=== PATIENT | male | born 1955 | race Two or more races ===

== ENCOUNTER 2024-07-02 14:31 | Outpatient (RCR) | payer MEDICARE, SELFPAY ==
--- NOTE | 2024-07-19 21:12 | CTCFLWUP_ITS ---
Patient: SANDER HERNÁNDEZ : 1955 Page 6 of 7 FOLLOW UP NOTE DATE OF SERVICE: 07/02/2024 NAME: SANDER HERNÁNDEZ ACCOUNT: [id number] : 1955 AGE: 69 INTERVAL HISTORY: ONCOLOGY HISTORY: DIAGNOSIS: DATE OF DIAGNOSIS: STAGE/TNM: TREATMENT HISTORY: Care?Plan Start?Date Cycle Day Intent HISTORY OF PRESENT ILLNESS: Sander Hernández is a 69-year-old SPA speaking male with history of Crohn's disease res ulting in significant diarrhea, hypertension, hyperlipidemia is referred to hematology clinic for deonte vated gammaglobulin levels along with elevated M spike. Mr. Hernández had a prostatectomy in 2013. He does not know why the prostatectomy was done. 03/12/2023: Mr. Hernández had serum protein electrophoresis which showed a total globulin level of 4.7, gammaglobulin level of 2.4 (0.4?1.8), M spike of 1.8 g/dL. Hemoglobin 11.1, MCV 94, ferritin 2 4, iron saturation 9% 05/14/2023: Serum protein electrophoresis and immunofixation electrophoresis 06/19/2023: Bone marrow biopsy and aspiration? 09/19/2023: PET/CT scan 12/17/2023: SPEP, GERRI, FLC hemoglobin 13.8, MCV 94, WBC 5.0, ANC 2.1, creatinine 1.02, calcium 9.6, albumin 4.3. 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 Tobacco?Pack?per?Day:?1 Tobacco?Use?Years:?10 Tobacco?Use:?Quit?1985 ETOH Use:?Quit - beers daily for 20yrs Drug?Note:?Denies Social?History?Note:?Lives?with? MEDICATIONS: 1. azelastine - 0.05 % 1 drops Twice a Day 2. chlorthalidone - 25 mg 1 tab Daily 3. donepezil - 10 mg 1 tab Each Day 4. FeroSuL - 325 mg (65 mg iron) 1 tab Daily 5. lisinopril - 20 mg 1 tab Daily 6. memantine - 10 mg 1 tab Twice a Day 7. mesalamine - 1.2 gram 2 Daily 8. Vitamin D2 - 1,250 mcg (50,000 unit) 1 Capsule Weekly 9. Voltaren Arthritis Pain - 1 % As directed Medications Last Reconciled by Esme Garcia MD on 07/02/2024 ALLERGIES: No Known Drug Allergies REVIEW OF SYSTEMS: A complete 14-point review of systems was performed and is negative except as noted in interval histo ry. PHYSICAL EXAMINATION: VITAL SIGNS: Temperature?99.7, B/P?149/70, Oxygen?Saturation?97% Weight?186.6?lbs PAIN: 0 - No pain ECOG Performance Status: 0 - Asymptomatic and fully active GENERAL APPEARANCE: Appears well, in no apparent distress, appropriately interactive. HEENT: Normocephalic, no temporal wasting, normal conjunctiva, no scleral icterus, normal hearing, li ps without lesions, neck normal range of motion. CARDIOVASCULAR: Not assessed. PULMONARY: Normal respiratory effort, no respiratory distress or use of accessory muscles, speaking i n full sentences, no tachypnea. EXTREMITIES: No pedal edema or cyanosis. SKIN: Normal skin appearance. NEUROLOGIC: Alert and oriented x4. PSHYCHIATRIC: Appropriate affect, mood normal, behavior normal, intact thought and speech. LABORATORY DATA: I have personally reviewed and interpreted each of the patient?s relevant lab tests, abnormal finding s are below: Date ASSESSMENT/PLAN: 1. Monoclonal gammopathy of undetermined significance, IgG kappa type M spike 1.9, IgG 2804 2. Crohn's disease currently being followed by Dr. Christian. 3. Hypertension, hyperlipidemia, type 2 diabetes 4. History of prostatectomy in 2013. 1. No specific intervention required today. 2. I will see him back in clinic in 6 months with myeloma panel labs drawn prior to the visit. ORDERS: Cbc,cmp,spep,s immunophresis , kappa lambda chain ratio RETURN TO CLINIC: 6 months BILLING AND COMPLIANCE: I reviewed external records from providers outside my specialty as summarized above. I spent a total of 50 minutes on this patient?s care on the day of their visit excluding time spent related to any bi lled procedures. This time includes time spent with the patient as well as time spent documenting in the medical record, reviewing patients records and tests, obtaining history, placing orders, communi cating with other healthcare professionals, counseling the patient, family or caregiver, and/or care coordination for the diagnoses above. Electronically Signed by: Erik Espinosa MD T: 9:10 PM CC: Renate?Delfino? PCP: Michelle Giron Referring: Michelle Giron This document was completed utilizing speech recognition software. Grammatical errors, random word in sertions, pronoun errors, and incomplete sentences are an occasional consequence of this system due t o software limitations, ambient noise, and hardware issues. Any formal questions or concerns about th e content, text or information contained within the body of this dictation should be directly address ed to the provider for clarification.
== END 2024-07-21 23:59 | disposition home or self-care (01) ==
LOC: SCTC 14:31
PROVIDERS: PCP Physician Assistant; Referring Provider Physician Assistant; Visit Provider Internal Medicine Hematology & Oncology
DX: D47.2 Monoclonal gammopathy (principal); I10 Essential (primary) hypertension; E11.9 Type 2 diabetes mellitus without complications; E78.5 Hyperlipidemia, unspecified; K50.90 Crohn's disease, unspecified, without complications; Z90.79 Acquired absence of other genital organ(s)
CPT/HCPCS: 99214; G0463

== ENCOUNTER → 2024-11-12 | Outpatient (CLI) | payer MEDICARE, SELFPAY ==
--- NOTE | 2024-11-12 11:15 | XR_ITS ---
Examination: Abdomen sonogram, complete Date and time of exam: November 12, 2024 1045 hours INDICATIONS: Elevated liver function tests on laboratory examination performed one month ago. Technique: Multiple real-time grayscale transabdominal sonographic images of the abdomen have been obtained. Findings: Absent gallbladder Normal common bile duct 0.3 cm Pancreas obscured by bowel gas Aorta not enlarged Liver 10.9 cm fatty infiltration lobular contour no focal liver lesions Normal hepatopedal portal venous flow Patent IVC Right kidney 9.7 cm cortex 1.1 cm Left kidney 12.0 cm cortex 2.7 cm Moderate bilateral renal parenchymal scar formation Spleen 11.5 cm IMPRESSION: Absent gallbladder Normal common bile duct Fatty liver Moderate bilateral renal parenchymal scar formation
== END | disposition home or self-care (01) ==
PROVIDERS: PCP Internal Medicine; Referring Provider Internal Medicine; Visit Provider Internal Medicine
DX: K76.0 Fatty (change of) liver, not elsewhere classified (principal); N28.89 Other specified disorders of kidney and ureter
CPT/HCPCS: 76700

== ENCOUNTER 2024-11-17 11:16 | Outpatient (RCR) | payer MEDICARE, SELFPAY ==
[2024-11-17 13:29] LABS: Basophils % (Auto) 1 % (0-2.5); Eosinophils # (Auto) 0.2 Thou/mm3 (0.0-0.5); Eosinophils % (Auto) 4 % (0-10); Hematocrit 33.6 % (41.0-53.0); Hemoglobin 11.6 g/dL (13.5-16.0); Immature Granulocytes % (Auto) 0 % (0-0); Lymphocytes # (Auto) 1.3 Thou/mm3 (1.0-4.8); Lymphocytes % (Auto) 36 % (10-50); Mean Corpuscular HGB Conc 34.5 g/dl (31.0-37.0); Mean Corpuscular Hemoglobin 31.4 pg (25.0-35.0); Mean Corpuscular Volume 91 fL (80-100); Monocytes # (Auto) 0.4 Thou/mm3 (0.0-0.8); Monocytes % (Auto) 10 % (0-12); Neutrophils # (Auto) 1.8 Thou/mm3 (1.8-7.7); Neutrophils % (Auto) 49 % (37-80); Nucleated Red Blood Cell % 0 /100 WBC (0); Platelet Count 178 Thou/mm3 (140-440); RDW Standard Deviation 45.5 fL (35.1-43.9); Red Blood Count 3.69 Miln/mm3 (4.50-5.90); White Blood Count 3.7 Thou/mm3 (3.8-10.6)
[2024-11-17 13:55] LABS: Alanine Aminotransferase 58 U/L (10-49); Albumin, Serum 3.8 gm/dL (3.4-4.8); Alkaline Phosphatase 342 U/L (46-116); Anion Gap 5 (7-16); Aspartate Amino Transferase 66 U/L (0-34); BUN/Creatinine Ratio 21 Ratio (12-20); Blood Urea Nitrogen 23 mg/dL (9-23); Calcium 8.4 mg/dL (8.3-10.6); Calcium (Corrected) 8.6 mg/dL (8.5-10.1); Carbon Dioxide 24.6 mMol/L (20.0-31.0); Chloride 107 mMol/L (98-107); Creatinine (Component) 1.1 mg/dL (0.6-1.3); Globulin 3.9 gm/dL (2.3-3.5); Glucose 95 mg/dL (74-106); Osmolality,Calculated 277 (275-295); Potassium 4.6 mMol/L (3.4-5.1); Sodium 137 mMol/L (136-145); Total Protein 7.7 gm/dL (5.7-8.2); eGFR > 60 See Note
== END 2024-11-18 23:59 | disposition home or self-care (01) ==
LOC: SCTC 11:16
PROVIDERS: Internal Medicine Hematology & Oncology; PCP Physician Assistant; Referring Provider Physician Assistant; Visit Provider Nurse Practitioner Family
DX: D47.2 Monoclonal gammopathy (principal); K76.0 Fatty (change of) liver, not elsewhere classified; K50.90 Crohn's disease, unspecified, without complications; I10 Essential (primary) hypertension; E78.5 Hyperlipidemia, unspecified; E11.9 Type 2 diabetes mellitus without complications; Z90.79 Acquired absence of other genital organ(s)
CPT/HCPCS: 80053; 85025; 96360; 99212; J7030; G0463

== ENCOUNTER 2024-12-09 07:38 | Outpatient (CLI) | payer MEDICARE, MEDICAID, SELFPAY ==
[2024-12-07 09:53] VITALS: BMI 26.4
[2024-12-08 10:37] LABS: Basophils % (Auto) 1 % (0-2.5); Eosinophils # (Auto) 0.3 Thou/mm3 (0.0-0.5); Eosinophils % (Auto) 6 % (0-10); Hematocrit 37.6 % (41.0-53.0); Hemoglobin 13.1 g/dL (13.5-16.0); Immature Granulocytes % (Auto) 0 % (0-0); Lymphocytes # (Auto) 1.6 Thou/mm3 (1.0-4.8); Lymphocytes % (Auto) 38 % (10-50); Mean Corpuscular HGB Conc 34.8 g/dl (31.0-37.0); Mean Corpuscular Hemoglobin 31.6 pg (25.0-35.0); Mean Corpuscular Volume 91 fL (80-100); Monocytes # (Auto) 0.4 Thou/mm3 (0.0-0.8); Monocytes % (Auto) 9 % (0-12); Neutrophils # (Auto) 1.9 Thou/mm3 (1.8-7.7); Neutrophils % (Auto) 46 % (37-80); Nucleated Red Blood Cell % 0 /100 WBC (0); Platelet Count 231 Thou/mm3 (140-440); RDW Standard Deviation 46.1 fL (35.1-43.9); Red Blood Count 4.14 Miln/mm3 (4.50-5.90); White Blood Count 4.2 Thou/mm3 (3.8-10.6)
[2024-12-08 10:46] LABS: INR 1.1 (0.9-1.3); Prothrombin Time 11.5 Seconds (9.0-12.2)
[2024-12-09] VITALS (11 sets, daily range): BP systolic 121–165; BP diastolic 68–83; PULSE 50–64; RESP 14–19; TEMP 36.2–36.4; O2SAT 96–100
--- NOTE | 2024-12-09 08:30 | XR_ITS ---
Examination: CT-guided percutaneous bone marrow aspiration right posterior superior iliac crest CT-guided percutaneous bone biopsy deep right posterior superior iliac crest CT pelvis without intravenous contrast Date and time of procedure: December 09, 2024 0904 hours INDICATIONS: Abnormal globulin on laboratory examination this month, gammopathy Informed consent provided. A timeout was completed verifying correct patient, procedure, site and positioning. Technique: Axial 3 mm sections were obtained for localization of the lung abnormality. Appropriate area is marked. The patient's site was prepped and draped in sterile fashion Maximal sterile barrier technique utilized, including hand hygiene Local anesthesia was obtained with 1% lidocaine. Low dose protocols were performed. One or more of the following dose reduction techniques were used; automated exposure control, adjustment of the mA and/or KV according to patient size, use of iterative reconstruction technique. Utilizing CT fluoroscopic guidance 14-gauge biopsy needle placed in the right posterior superior iliac crest 10 cc marrow aspirate and 5 cm bone core obtained Patient appears in stable condition during this procedure. At completion of the procedure, the patient is in satisfactory condition. Estimated blood loss 2 cc Complete pathology report to follow. Impression: Successful CT-guided bone marrow aspiration right posterior superior iliac crest Successful CT-guided bone biopsy deep right posterior superior iliac crest
[2024-12-09] MEDS: SODIUM CHLORIDE 0.9% 500 ML 500 ML 20 ML IV (09:15)
[2024-12-09] MEDS: fentaNYL CIT INJ 50 mCg/ML AMP 2ML IVP (09:30)
[2024-12-09 09:57] LABS: Flow Cytometry* See Sep Rpt
--- NOTE | 2024-12-09 16:12 | PC.NURSE ---
0951 patient is awake, alert, breathing unlabored, s/p bone marrow biopsy and aspiration, band aid to lower back, no bleeding noted, report received from Robby TO, patient to recover for 1 hr. 1116 patient awake, alert, breathing unlabored, no bleeding noted to lower back, patient able eat sandwich with no nausea or vomiting, meets discharge criteria, discharge instructions given by line haul owner operator Robby TO, patient discharged home in wheelchair with all belongings.
== END 2024-12-09 11:16 | disposition home or self-care (01) ==
PROVIDERS: Radiology Diagnostic Radiology; PCP Internal Medicine; Referring Provider Nurse Practitioner Family; Visit Provider Nurse Practitioner Family
DX: C90.30 Solitary plasmacytoma not having achieved remission (principal); Z01.812 Encounter for preprocedural laboratory examination
CPT/HCPCS: 38221; 36415; 77012; 85025; 85610; 85730; J3010; J7040

== ENCOUNTER → 2024-12-15 | Outpatient (CLI) | payer MEDICARE, MEDICAID, SELFPAY ==
--- NOTE | 2024-12-15 08:45 | XR_ITS ---
Examination: Abdomen sonogram, complete Date and time of exam: December 15, 2024 0844 hours INDICATIONS: Abnormal globular levels on laboratory examination 2 months ago, history cholecystectomy. Technique: Multiple real-time grayscale transabdominal sonographic images of the abdomen have been obtained. Findings: Absent gallbladder Normal common bile duct 0.3 cm Pancreatic head 2.6 cm Aorta not enlarged Liver 14.5 cm fatty infiltration irregular contour Normal hepatopedal portal venous flow Patent IVC Right kidney 10.5 cm cortex 1.7 cm Left kidney 11.8 cm cortex 1.3 cm Mild renal parenchymal scar formation Spleen 12.3 cm IMPRESSION: Primary hepatocellular disease, fatty infiltration, no focal liver lesions
== END | disposition home or self-care (01) ==
LOC: CDIM 08:27
PROVIDERS: PCP Internal Medicine; Referring Provider Nurse Practitioner Family; Visit Provider Nurse Practitioner Family
DX: K76.0 Fatty (change of) liver, not elsewhere classified (principal); K76.9 Liver disease, unspecified
CPT/HCPCS: 76700

== ENCOUNTER → 2024-12-30 | Outpatient (CLI) | payer MEDICARE, MEDICAID, SELFPAY ==
--- NOTE | 2024-12-30 08:00 | XR_ITS ---
Examination: MRI abdomen , with intravenous contrast. Exam date and time: December 30, 2024 0852 hours Comparison abdomen sonogram December 15, 2024 PET/CT scan September 19, 2023 INDICATIONS: Diagnosis abnormality lobular in Technique: Multiple axial, sagittal and coronal images of the abdomen have been obtained with the Siemens high-resolution 1.5 Randi MRI scanner. Axial, sagittal and coronal images are obtained post intravenous injection 11 cc gadolinium FINDINGS: No enhancing liver or splenic lesions No intrahepatic biliary tract dilatation Absent gallbladder No common hepatic or common bile duct dilatation No peripancreatic edema Normal adrenal glands Aorta normal size No hydronephrosis No ascites No abdominal lymphadenopathy. Impression: No abnormal enhancing liver or splenic lesions No lymphadenopathy Negative for ascites
== END | disposition home or self-care (01) ==
LOC: SMRI 07:38
PROVIDERS: PCP Internal Medicine; Referring Provider Nurse Practitioner Family; Visit Provider Nurse Practitioner Family
DX: R77.1 Abnormality of globulin (principal)
CPT/HCPCS: 74182; A9579

== ENCOUNTER 2025-01-04 13:50 | Outpatient (RCR) | payer MEDICARE, SELFPAY ==
--- NOTE | 2025-01-04 23:45 | CTCFLWUP_ITS ---
Patient: SANDER HERNÁNDEZ : 1955 Page 7 of 9 FOLLOW UP NOTE DATE OF SERVICE: 01/04/2025 NAME: SANDER HERNÁNDEZ ACCOUNT: [id number] : 1955 AGE: 69 INTERVAL HISTORY: Subjective: Chief Complaint Follow-up for myeloma, fatty liver History of Present Illness Sander, a Japanese-speaking patient with a history of myeloma and fatty liver, presents for follow-up. He reports no new symptoms or concerns related to his myeloma. The patient mentions difficulty with scheduling appointments at [facility] due to language barriers. He states that he receives automated calls in [place], which he cannot understand, and expresses frustration about not being able to communicate effectively with the healthcare system. Sander indicates that he is willing to attend appointments if they can provide services in Japanese. Sander's overall health status appears stable, with no reported changes in his condition or new symptoms related to his myeloma or liver issues. He does not mention any changes in his daily functioning or any recent stressors that may be impacting his health. Objective: Laboratory, Imaging, and Diagnostic Test Results - MRI: - No cancer in the liver - No lymph nodes - No ascites - Liver: Good - Blood work: - Mildly elevated liver enzymes - Other results: Good - Bone marrow biopsy: - Myeloma cells: 0.5% - PET scan (August 2023): - Negative - No lytic bone lesions ONCOLOGY HISTORY: DIAGNOSIS: Monoclonal gammopathy of undetermined significance, IgG kappa specificity Crohn's disease, fatty liver currently being followed by Dr. Christian. DATE OF DIAGNOSIS: 03/12/2023 STAGE/TNM: na TREATMENT HISTORY: Care?Plan Start?Date Cycle Day Intent HISTORY OF PRESENT ILLNESS: Sander Hernández is a 69-year-old SPA speaking male with history of Crohn's disease resulting in significant diarrhea, hypertension, hyperlipidemia is referred to hematology clinic for elevated gammaglobulin levels along with elevated M spike. Mr. Hernández had a prostatectomy in 2013. He does not know why the prostatectomy was done. 03/12/2023: Mr. Hernández had serum protein electrophoresis which showed a total globulin level of 4.7, gammaglobulin level of 2.4 (0.4?1.8), M spike of 1.8 g/dL. Hemoglobin 11.1, MCV 94, ferritin 24, iron saturation 9% 05/14/2023: Serum protein electrophoresis and immunofixation electrophoresis 06/19/2023: Bone marrow biopsy and aspiration? 09/19/2023: PET/CT scan 12/17/2023: SPEP, GERRI, FLC hemoglobin 13.8, MCV 94, WBC 5.0, ANC 2.1, creatinine 1.02, calcium 9.6, albumin 4.3. 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 Tobacco?Pack?per?Day:?1 Tobacco?Use?Years:?10 Tobacco?Use:?Quit?1985 ETOH Use:?Quit 12-29 beers daily for 20yrs Drug?Note:?Denies Social?History?Note:?Lives?with? MEDICATIONS: 1. chlorthalidone - 25 mg 1 tab Daily 2. donepezil - 10 mg 1 tab Each Day 3. FeroSuL - 325 mg (65 mg iron) 1 tab Daily 4. lisinopril - 20 mg 1 tab Daily 5. memantine - 10 mg 1 tab Twice a Day 6. mesalamine - 1.2 gram 2 Daily 7. Vitamin D2 - 1,250 mcg (50,000 unit) 1 Capsule Weekly 8. Voltaren Arthritis Pain - 1 % As directed Medications Last Reconciled by Onelia Max MA on 01/04/2025 ALLERGIES: No Known Drug Allergies REVIEW OF SYSTEMS: A complete 14-point review of systems was performed and is negative except as noted in interval history. PHYSICAL EXAMINATION: VITAL SIGNS: Temperature?98.2, B/P?141/76, Oxygen?Saturation?97% Weight?184?lbs PAIN: 2 - Mild pain ECOG Performance Status: 0 - Asymptomatic and fully active GENERAL APPEARANCE: Appears well, in no apparent distress, appropriately interactive. HEENT: Normocephalic, no temporal wasting, normal conjunctiva, no scleral icterus, normal hearing, lips without lesions, neck normal range of motion. CARDIOVASCULAR: Not assessed. PULMONARY: Normal respiratory effort, no respiratory distress or use of accessory muscles, speaking in full sentences, no tachypnea. EXTREMITIES: No pedal edema or cyanosis. SKIN: Normal skin appearance. NEUROLOGIC: Alert and oriented x4. PSHYCHIATRIC: Appropriate affect, mood normal, behavior normal, intact thought and speech. LABORATORY DATA: I have personally reviewed and interpreted each of the patient?s relevant lab tests, abnormal findings are below: Date 11/17/24 12/08/24 ??WHITE?BLOOD?COUNT?(Thou/mm3) 3.7?L 4.2 ??RED?BLOOD?COUNT?(Miln/mm3) 3.69?L 4.14?L ??HEMOGLOBIN?(gm/dl) 11.6?L 13.1?L ??HEMATOCRIT?(%) 33.6?L 37.6?L ??PLATELET?COUNT?(Thou/mm3) 178 231 ??NEUTROPHILS?%,?AUTO?(%) 49 46 ??LYMPH?%,?AUTO?(%) 36 38 ??NEUTROPHILS,?AUTO?(Thou/mm3) 1.8 1.9 ??GLUCOSE,RANDOM?(mg/dL) 95 ? ??BLOOD?UREA?NITROGEN?(mg/dL) 23 ? ??CREATININE?(mg/dL) 1.10 ? ??SODIUM?(mmol/L) 137 ? ??POTASSIUM?(mmol/L) 4.6 ? ??CHLORIDE?(mmol/L) 107 ? ??CrCl?(CandG)?(ml/min) 75.02 ? ??AST/SGOT?(Unit/L) 66?H ? ??ALT/SGPT?(Unit/L) 58?H ? ??ALKALINE?PHOSPHATASE?(Unit/L) 342?H ? ??BILIRUBIN,?TOTAL?(mg/dL) 1.0 ? ??PROTEIN?TOTAL?(gm/dl) 7.7 ? ??ALBUMIN,?SERUM?(gm/dl) 3.8 ? ??GLOBULIN?(gm/dl) 3.9?H ? ??ALBUMIN/GLOBULIN?RATIO 1.0?L ? ??CALCIUM,?SERUM?(mg/dL) 8.4 ? ??CALCIUM?SERUM?(CORRECTED)?(mg/dL) 8.6 ? ASSESSMENT/PLAN: Sander is a Japanese-speaking male patient with a history of multiple myeloma and fatty liver disease, presenting for follow-up of recent diagnostic studies. 1. Monoclonal gammopathy of undetermined significance, IgG kappa type M spike Recent bone marrow biopsy shows 0.5% myeloma cells, which is below the threshold for active disease. PET scan from August 2023 was negative for lytic bone lesions. Blood work is reported as good, with only mildly elevated liver enzymes. 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 Plan: - Follow-up appointment in 6 months - Continue monitoring for disease progression Fatty Liver Disease Assessment: Patient has been diagnosed with fatty liver disease. Recent MRI showed no cancer in the liver, no lymph node involvement, and no ascites. Blood work revealed mildly elevated liver enzymes. This condition requires specialized management beyond the scope of the current oncology practice. Plan: - Referral to [facility] for liver management - billing assistant to assist with scheduling and language support for [facility] appointment 2. History of Hypertension, hyperlipidemia, type 2 diabetes, continue f/u with PCP chronic condition ORDERS: Order # Description [id number] MD Follow Up 6 Month [id number] Serum Protein Electrophoresis + Serum Immunofixation Electrophoresis + Beta-2 Microglobulin + Quant Immunoglobulins + Free kappa and lambda light chains plus ratio, quantitative + 24 Hour Urine for total Protein + Urine Protien Electrophoresis RETURN TO CLINIC: 6 months BILLING AND COMPLIANCE: I reviewed external records from providers outside my specialty as summarized above. I spent a total of 50 minutes on this patient?s care on the day of their visit excluding time spent related to any billed procedures. This time includes time spent with the patient as well as time spent documenting in the medical record, reviewing patients records and tests, obtaining history, placing orders, communicating with other healthcare professionals, counseling the patient, family or caregiver, and/or care coordination for the diagnoses above. Electronically Signed by: Erik Espinosa MD T: 11:43 PM CC: Margarito,? PCP: Bartolo Landrum Referring: Bartolo Landrum This document was completed utilizing speech recognition software. Grammatical errors, random word insertions, pronoun errors, and incomplete sentences are an occasional consequence of this system due to software limitations, ambient noise, and hardware issues. Any formal questions or concerns about the content, text or information contained within the body of this dictation should be directly addressed to the provider for clarification.
== END 2025-01-18 23:59 | disposition home or self-care (01) ==
LOC: SCTC 13:50
PROVIDERS: PCP Family Medicine; Referring Provider Family Medicine; Visit Provider Internal Medicine Hematology & Oncology
DX: C90.00 Multiple myeloma not having achieved remission (principal); D47.2 Monoclonal gammopathy; K76.0 Fatty (change of) liver, not elsewhere classified
CPT/HCPCS: 99213; G0463

== ENCOUNTER → 2025-01-13 | Outpatient (CLI) | payer MEDICARE, SELFPAY ==
--- NOTE | 2025-01-13 13:01 | XR_ITS ---
Examination: Bone survey, 15 views TECHNIQUE: [place], left lateral skull, AP pelvis, AP chest, lateral cervical thoracic lumbar spine, AP right and left humerus, AP right and left forearm, AP right and left femur, AP right and left tibia-fibula, total 15 views INDICATIONS: Bone survey for multiple myeloma Date and time: January 13, 2025 1346 hours Comparison PET/CT scan September 19, 2023 FINDINGS: Cranial vault intact Normal sella turcica Hips bones of the pelvis intact Normal heart size lungs are clear Ribs clavicles do not exhibit abnormality Moderate degenerative disc disease C5-C6 No cervical thoracic or lumbar pathologic fracture Advanced degenerative disc disease L4-L5 Humerus right and left forearm right and left femur right and left demonstrate no osteolytic lesions IMPRESSION: No findings diagnostic for osteolytic bone lesions
== END | disposition home or self-care (01) ==
LOC: CDIM 12:53
PROVIDERS: PCP Internal Medicine; Referring Provider Internal Medicine Hematology & Oncology; Visit Provider Internal Medicine Hematology & Oncology
DX: R74.01 Elevation of levels of liver transaminase levels (principal); R77.1 Abnormality of globulin
CPT/HCPCS: 77074

== ENCOUNTER → 2025-04-29 | Outpatient (CLI) | payer MEDICARE, SELFPAY ==
--- NOTE | 2025-04-29 15:15 | XR_ITS ---
Examination: MRI abdomen without contrast Date and time of exam: May 09, 2025, 1633 hours INDICATIONS: Right upper abdominal pain for months, elevated liver enzymes on laboratory examination performed 4 months ago, diagnosis abnormality of globulin Technique: Multiple MRI axial and sagittal sections lumbar spine. Sagittal T2-weighted images, TR 3500, TE 118 T1 weighted transverse sections, TR 688 T8.5, T2-weighted sagittal sections T1 weighted sagittal sections TR 621, TE 30 T2 axial sections, TR 4, 190, TE 84. Findings: Small apparent artifactual areas of signal in the lower right lobe of the liver No intrahepatic biliary tract dilatation Gallbladder is not visualized No extrahepatic biliary tract dilatation No pancreatic mass Spleen is not enlarged Aorta normal size No ascites Spleen is not enlarged No abdominal lymphadenopathy IMPRESSION: Artifactual areas of signal in the lower right lobe of the liver Recommend CT scan abdomen follow-up pre and postcontrast to better assess the liver
== END | disposition home or self-care (01) ==
LOC: SMRI 14:30
PROVIDERS: PCP Internal Medicine; Referring Provider Student in an Organized Health Care Education/Training Program; Visit Provider Student in an Organized Health Care Education/Training Program
DX: K76.89 Other specified diseases of liver (principal)
CPT/HCPCS: 74181

== ENCOUNTER → 2025-07-09 | Outpatient (CLI) | payer MEDICARE, SELFPAY ==
--- NOTE | 2025-07-09 09:00 | XR_ITS ---
Examination: CT abdomen, without intravenous contrast. CT pelvis, without intravenous contrast. CT abdomen, with intravenous contrast. CT pelvis, with intravenous contrast. 2-D sagittal coronal reconstructions. Date and time of exam: July 09, 2025, 0928 hours, comparison PET/CT scan September 19, 2023 INDICATIONS: Diagnosis abnormality of globulin, clinical diagnosis left-sided colitis left lower abdominal pain 1 week CTDI: vol (mGy) 16.3 DLP: (mGycm) 1056 Technique: Multiple 3.0 axial images of the abdomen and pelvis without intravenous contrast, 3.0 mm slice thickness. Multiple 3.0 postcontrast images abdomen and pelvis also obtained, post intravenous injection 60 cc [id number] 2-D sagittal and coronal reconstructions. Low dose protocols were performed. One or more of the following dose reduction techniques were used; automated exposure control, adjustment of the mA and/or KV according to patient size, use of iterative reconstruction technique. Findings: Mild intraparotid biliary tract dilatation Absent gallbladder Spleen is not enlarged No pancreatic or adrenal mass No renal or ureteral calculi, no hydronephrosis Absent appendix No bowel obstruction No diverticulitis or nonspecific colitis pattern Urinary bladder intact No recognizable prostate tissue Advanced disc narrowing L4-L5 IMPRESSION: No renal or ureteral calculi, no hydronephrosis Absent appendix No bowel obstruction No diverticulitis or nonspecific colitis pattern
== END | disposition home or self-care (01) ==
PROVIDERS: PCP Internal Medicine; Referring Provider Internal Medicine Gastroenterology; Visit Provider Internal Medicine Gastroenterology
DX: K51.50 Left sided colitis without complications (principal); K52.9 Noninfective gastroenteritis and colitis, unspecified; R10.13 Epigastric pain; R10.32 Left lower quadrant pain
CPT/HCPCS: 74178; A4649; Q9967